=== PATIENT | male | born 1990 ===

== ENCOUNTER 2021-02-10 21:39 | Emergency (ER) | payer SELFPAY ==
[~2021-02-10] VITALS: Ht 170.2 cm; Wt 74.8 kg
--- NOTE | 2021-02-10 22:23 | NUR ---
No beds available in the ER. Placed patient back in waiting room.
--- NOTE | 2021-02-10 23:00 | NUR ---
Patient was to be placed in bed but patient was not present in the waiting room.
--- NOTE | 2021-02-10 23:15 | NUR ---
Patient was called to be placed in room but patient was not present in the waiting room. Patient was not seen by ERMD or triaged.
== END 2021-02-10 23:15 | disposition left against medical advice (07) ==
LOC: ER 21:44
DX: Z53.21 Procedure and treatment not carried out due to patient leaving prior to being seen by health care provider (principal)
CPT/HCPCS: A4663